=== PATIENT | female | born 1995 | race Caucasian/White ===

== ENCOUNTER 2017-07-14 11:16 | Emergency (ER) | payer OTHER | END 2017-07-14 12:06 | disposition home or self-care (01) | LOC: E/R 11:16 | DX: J00 Acute nasopharyngitis [common cold] (principal); J45.909 Unspecified asthma, uncomplicated | CPT/HCPCS: 99283; Z7502 ==

== ENCOUNTER 2017-07-31 19:46 | Emergency (ER) | payer OTHER ==
[2017-07-31] MEDS: METHYLPREDNISOLONE 125 MG INJ IM (21:17)
[2017-07-31] MEDS: ALBUTEROL 0.083% (NEB) 2.5 MG/3 ML AMP HHN (21:39)
[2017-07-31] MEDS: IPRATROPIUM (NEB) 0.5 MG/2.5 ML AMP HHN (21:39)
== END 2017-07-31 22:41 | disposition home or self-care (01) ==
LOC: FTE 22:41
DX: J45.901 Unspecified asthma with (acute) exacerbation (principal)
CPT/HCPCS: 87400; 94664; 96372; 99284-25

== ENCOUNTER 2018-12-26 21:15 | Emergency (ER) | payer OTHER | END 2018-12-27 00:38 | disposition home or self-care (01) | LOC: FTE 21:15 | DX: J40 Bronchitis, not specified as acute or chronic (principal) | CPT/HCPCS: 99283; Z7502 ==